=== PATIENT | female | born 1930 | race Caucasian/White ===

== ENCOUNTER 2017-07-23 16:40 | Observation (INO) | payer OTHER ==
--- NOTE | 2017-07-23 17:18 | PDOC ---
History of Present Illness - General Chief Complaint: Syncope/Near Syncope Stated Complaint: SYNCOPE/NEAR SYNCOPE Time Seen by Provider: 07/23/17 16:47 History Source: EMS, Correction Records Exam Limitations: Dementia - History of Present Illness Initial Comments: This is an 87 YOF with h/o vascular dementia (on memantine), diabetes (on metformin), hyperthyroid and thyroidectomy (now on levothyroxine) who presents s /p syncope x2 as at her independent living facility. She herself is unable to provide any of her medical history 2/2 dementia. The HCP is here with her and states that the patient has generally been feeling well lately. The patient is sent specifically for admission to Dr. Ratliff with Dr. Rios consulting for cardiology. Past History - Past Medical History Allergies/Adverse Reactions: Allergies Allergy/AdvReac Type Severity Reaction Status Date / Time No Known Allergies Allergy Verified 07/23/17 17:00 Home Medications: Ambulatory Orders Acetaminophen [Mapap] 500 mg PO BID 07/23/17 Atorvastatin Ca [Lipitor] 10 mg PO HS 07/23/17 Bimatoprost [Lumigan] 1 drop OU HS 07/23/17 Brimonidine Tartrate/Timolol [Combigan Eye Drops] 1 drop OU BID 07/23/17 Calcium Carbonate [Tums] 400 mg PO DAILY 07/23/17 Carboxymethylcell/Glycerin/Pf [Optive Sensitive Eye Drops] 1 each OU BID Cholecalciferol (Vitamin D3) [Vitamin D3] 50,000 cap PO MONTHLY 07/23/17 Levothyroxine [Synthroid -] 88 mcg PO DAILY 07/23/17 Memantine HCl [Namenda Xr] 28 mg PO DAILY 07/23/17 Metformin HCl 500 mg PO DAILY 07/23/17 COPD: No Dementia: Yes Diabetes: Yes Hypercholesterolemia: Yes Thyroid Disease: Yes (hypothyroidism) - Suicide/Smoking/Psychosocial Hx Smoking History: Unknown if ever smoked Have you smoked in the past 12 months: No Information on smoking cessation initiated: No Hx Alcohol Use: No Drug/Substance Use Hx: No Substance Use Type: None Review of Systems - Review of Systems Able to Perform ROS?: No (dementia) *Physical Exam - Vital Signs Last Vital Signs Temp Pulse Resp BP Pulse Ox 98.1 F 72 18 134/72 92 L 07/25/17 09:25 07/25/17 09:25 07/25/17 09:25 07/25/17 09:25 07/25/17 06:22 - Physical Exam General Appearance: Yes: Nourished, Appropriately Dressed, Other (pleasantly demented elderly female in no distress, oriented only to self, date, city , and type of building). No: Apparent Distress HEENT: positive: EOMI, SYEDA, Normal Voice, Hearing Grossly Normal. negative: Scleral Icterus (R), Scleral Icterus (L), Nasal Congestion Neck: positive: Trachea midline, Supple. negative: Tender, Rigid Respiratory/Chest: positive: Lungs Clear, Normal Breath Sounds. negative: Respiratory Distress, Crackles, Rhonchi, Stridor, Wheezing Cardiovascular: positive: Regular Rhythm, Regular Rate, Irregularly Irregular (A -fib versus PVCs). negative: Murmur Gastrointestinal/Abdominal: positive: Normal Bowel Sounds, Soft. negative: Tender, Organomegaly, Pulsatile Mass, Guarding Musculoskeletal: positive: Normal Inspection. negative: Decreased Range of Motion, Vertebral Tenderness Extremity: positive: Normal Capillary Refill, Normal Inspection, Normal Range of Motion, Other (R calf 1+ pitting edema, left calf trace pitting edema). negative: Tender, Cyanosis Integumentary: positive: Normal Color, Dry, Warm. negative: Erythema, Rash, Bruising Neurologic: positive: manager process excellence II-XII NML intact, Alert, Normal Mood/Affect, Normal Response, Motor Strength 5/5, Finger to Nose (normal). negative: EOM Palsy, Facial Droop, Numbness, Sensory Deficit ED Treatment Course - LABORATORY CBC & Chemistry Diagram: 07/25/17 05:05 07/25/17 05:05 - ADDITIONAL ORDERS Additional order review: 07/24/17 07/24/17 07/23/17 06:20 06:09 19:08 RBC 4.45 MCV 92.7 MCHC 32.4 RDW 13.0 MPV 9.1 Neutrophils % 83.4 H Lymphocytes % 10.9 Monocytes % 5.4 Eosinophils % 0.1 Basophils % 0.2 POC Glucometer 133 [id number] 07/23/17 17:45 RBC 4.82 MCV 91.9 MCHC 33.2 RDW 13.3 MPV 9.1 Neutrophils % 84.6 H Lymphocytes % 10.1 Monocytes % 4.7 Eosinophils % 0.2 Basophils % 0.4 POC Glucometer - RADIOLOGY Radiology Studies Ordered: Category Date Time Status HEAD CT WITHOUT CONTRAST [CT] Stat CT Scan 07/23/17 18:44 Completed CHEST PA & LAT [RAD] Stat Radiology 07/23/17 17:31 Completed Medical Decision Making - Medical Decision Making 87 YOF with h/o vascular dementia, NIDDM, and surgical hypothyroidism who had 2 episodes of syncope at SNF today. Sent specifically for admission to Dr. Ratliff with Dr. Rios consulting for cardiology. On exam VS wnl except requires supplemental O2 to maintain pulse ox >92. DDX IBNLT arrhythmia, critical , ACS, metabolic, toxic, infectious, etc. Ordered is CBCD, CMP, Mg, Phos, EKG, rhythm strip, CXR, UA cx. 07/23/17 18:50 While in the ED in a wheelchair just having returned from [facility], patient's HCP calls for assistance. The patient is unresponsive sitting in wheelchair, neck muscles lost tone and patient's head is back/looking upward. Myself and Dr. Vega assess the patient and Dr. Vega does not feel radial pulse at this time. With more assistants we are able to transfer her to the hospital bed and restart the monitor. She regains consciousness during transfer to the hospital bed. Estimated time unconscious about one minute. The patient is subsequently sleeping but arousable and does answer questions. She states she is very tired, no pain, no SOB or palpitations. *DC/Admit/Observation/Transfer Diagnosis at time of Disposition: Syncope Qualifiers: Syncope type: unspecified Qualified Code(s): R55 - Syncope and collapse - Discharge Dispostion Condition at time of disposition: Guarded Admit: Yes - Referrals - Patient Instructions - Post Discharge Activity
[2017-07-23 18:39] LABS: BASO % 0.4 % (0-2.0); EOS % 0.2 % (0-4.5); MCH 30.5 pg (25.7-33.7); MCHC 33.2 g/dl (32.0-36.0); MEAN CELL VOLUME 91.9 fl (80-96); MEAN PLT VOLUME 9.1 fl (7.5-11.1); MONO # 0.5 #; NEUT # 8.2 #; NEUT % 84.6 % (42.8-82.8); PLATELET COUNT 201 K/MM3 (134-434); RDW 13.3 % (11.6-15.6); WHITE BLOOD COUNT 9.7 K/mm3 (4.0-10.0)
--- NOTE | 2017-07-23 18:56 | PDOC ---
Attending Attestation - Resident Resident Name: HernandezMonique - ED Attending Attestation I have performed the following: I have examined & evaluated the patient, The case was reviewed & discussed with the resident, I agree w/resident's findings & plan, Exceptions are as noted - HPI HPI: 07/23/17 18:52 87-year-old female sent for admission to Dr. Ratliff in the setting of episodes of witnessed syncope. No trauma/pain, no h/o pacemaker evaluation, denies any chest pain/palpitations. - Physicial Exam PE: 07/23/17 18:54 afebrile alert, baseline dementia, atraumatic regular with a single pause noted during my auscultation ctab neuro nonfocal - Medical Decision Making 07/23/17 18:55 Patient seen and evaluated with the resident. I agree with the overall evaluation, assessment, and management with the following summary of visit: 87-year-old female with witnessed syncope, sent for admission. Labs, cardiac monitoring EKG with pause, question sinus pause v. second-degree block. We'll check a rhythm strip Admission to telemetry with cardiology following, Dr. Rios as per Dr. Ratliff
[2017-07-23 19:09] LABS: ALBUMIN 3.8 g/dl (3.4-5.0); ANION GAP 6 (8-16); CALCIUM 9.4 mg/dL (8.5-10.1); CO2 29 mmol/L (21-32); CREATININE 0.9 mg/dL (0.55-1.02); GLUCOSE,RANDOM 154 mg/dL (74-106); MAGNESIUM 2.2 mg/dL (1.8-2.4); SGOT/AST 12 U/L (15-37); SGPT/ALT 23 U/L (12-78)
[2017-07-23 19:16] LABS: ALK PHOS 101 U/L (45-117); BILIRUBIN,TOTAL 0.5 mg/dL (0.2-1.0); CPK 44 IU/L (26-192); TOT PROT 6.9 g/dl (6.4-8.2); TROPONIN I < 0.02 ng/ml (0.00-0.05)
[2017-07-23 19:52] LABS: URINE APPEARANCE CLOUDY; URINE BILIRUBIN NEGATIVE (NEGATIVE); URINE BLOOD NEGATIVE (NEGATIVE); URINE COLOR YELLOW; URINE GLUCOSE (UA) NEGATIVE (NEGATIVE); URINE KETONE NEGATIVE (NEGATIVE); URINE LEUK ESTERASE NEGATIVE (NEGATIVE); URINE NITRITE NEGATIVE (NEGATIVE); URINE PROTEIN NEGATIVE (NEGATIVE); URINE UROBILINOGEN NEGATIVE mg/dL (0.2-1.0)
[2017-07-23 23:51] LABS: URINE LEUK ESTERASE Negative (NEGATIVE)
[2017-07-24 01:06] VITALS: BMI 28.1
--- NOTE | 2017-07-24 02:06 | HP ---
Admitting History and Physical - Admission History of Present Illness: Pt is a 87 y/o female w/ PMH significant for vascular dementia, diabetes and hyperthyroid. Pt lives in a ?independently assisted living facility and was sent to the ER bc of 2 episodes of "passing out". Pt is unable to give any history of her syncope and states that she is feelilng fine and nothing happened. In the ER pt had ct scan head wc did not show any acute pathology. History Source: Patient, Medical Record - Past Medical History COMMUNITY NURSE: Yes: Dementia Endocrine: Yes: Diabetes Mellitus, Hyperthyroidism - Past Surgical History Additional Past Surgical History: Thyroidectomy - Advance Directives Advance Directives: Yes: Living Will, Health Care Proxy - Smoking History Smoking history: Unknown if ever smoked Have you smoked in the past 12 months: No - Alcohol/Substance Use Hx Alcohol Use: No Home Medications - Allergies Allergies/Adverse Reactions: Allergies Allergy/AdvReac Type Severity Reaction Status Date / Time No Known Allergies Allergy Verified 07/23/17 17:00 - Home Medications Home Medications: Ambulatory Orders Acetaminophen [Mapap] 500 mg PO BID 07/23/17 Atorvastatin Ca [Lipitor] 10 mg PO HS 07/23/17 Bimatoprost [Lumigan] 1 drop OU HS 07/23/17 Brimonidine Tartrate/Timolol [Combigan Eye Drops] 1 drop OU BID 07/23/17 Calcium Carbonate [Tums] 400 mg PO DAILY 07/23/17 Carboxymethylcell/Glycerin/Pf [Optive Sensitive Eye Drops] 1 each OU BID Cholecalciferol (Vitamin D3) [Vitamin D3] 50,000 cap PO MONTHLY 07/23/17 Levothyroxine [Synthroid -] 88 mcg PO DAILY 07/23/17 Memantine HCl [Namenda Xr] 28 mg PO DAILY 07/23/17 Metformin HCl 500 mg PO DAILY 07/23/17 Family Disease History - Family Disease History Family History: Unable to Obtain Review of Systems - Review of Systems Constitutional: reports: No Symptoms Eyes: reports: No Symptoms HENT: reports: No Symptoms Neck: reports: No Symptoms Cardiovascular: reports: No Symptoms Respiratory: reports: No Symptoms Gastrointestinal: reports: No Symptoms Physical Examination Vital Signs: Vital Signs Temperature 98.6 F 07/23/17 23:45 Pulse Rate 83 07/23/17 23:45 Respiratory Rate 18 07/23/17 23:45 Blood Pressure 113/55 07/23/17 23:45 O2 Sat by Pulse Oximetry (%) 92 L 07/23/17 23:45 Constitutional: Yes: No Distress Eyes: Yes: WNL HENT: Yes: WNL Neck: Yes: WNL, Supple Cardiovascular: Yes: WNL, Regular Rate and Rhythm Respiratory: Yes: WNL, Regular, CTA Bilaterally Gastrointestinal: Yes: WNL, Normal Bowel Sounds, Soft Musculoskeletal: Yes: WNL Extremities: Yes: WNL Edema: No Neurological: Yes: WNL, Alert, Other (Orientated to person but not place or time ) ...Motor Strength: WNL Labs: CBC, BMP 07/23/17 17:45 07/23/17 17:45 Problem List - Problems (1) Syncope Assessment/Plan: Admitted to tele No arrhythmia's on tele Neuro/cardio consults Carotid doppler did not show any significant stenosis Code(s): R55 - SYNCOPE AND COLLAPSE Qualifiers: Syncope type: unspecified Qualified Code(s): R55 - Syncope and collapse (2) Leukocytosis Assessment/Plan: Slight elevation in wbc ?Dehydrataion Will give gentle IV hydration and repeat in am Urine culture pending Code(s): D72.829 - ELEVATED WHITE BLOOD CELL COUNT, UNSPECIFIED (3) Hyperthyroidism Assessment/Plan: S/P thyroidectomy Pt on levothyroxine TSH is w/in normal limits Code(s): E05.90 - THYROTOXICOSIS, UNSP WITHOUT THYROTOXIC CRISIS OR STORM (4) HLD (hyperlipidemia) Assessment/Plan: Cont lipitor Code(s): E78.5 - HYPERLIPIDEMIA, UNSPECIFIED (5) Dementia Code(s): F03.90 - UNSPECIFIED DEMENTIA WITHOUT BEHAVIORAL DISTURBANCE
[2017-07-24 03:33] LABS: CPK 26 IU/L (26-192); TROPONIN I < 0.02 ng/ml (0.00-0.05)
[2017-07-24] MEDS: LEVOTHYROXINE NA 88 MCG TABLET (FP) PO SCH (06:11)
[2017-07-24] MEDS: metFORMIN HCL 500 MG TABLET (FP) PO SCH (06:11)
[2017-07-24 06:37] LABS: BASO % 0.2 % (0-2.0); EOS % 0.1 % (0-4.5); LYMPH # 1.3; MCH 30.1 pg (25.7-33.7); MCHC 32.4 g/dl (32.0-36.0); MEAN CELL VOLUME 92.7 fl (80-96); MEAN PLT VOLUME 9.1 fl (7.5-11.1); MONO # 0.6 #; NEUT # 10.1 #; NEUT % 83.4 % (42.8-82.8); PLATELET COUNT 200 K/MM3 (134-434); WHITE BLOOD COUNT 12.1 K/mm3 (4.0-10.0)
[2017-07-24 08:31] LABS: ALBUMIN 3.4 g/dl (3.4-5.0); ANION GAP 13 (8-16); BILIRUBIN,TOTAL 0.5 mg/dL (0.2-1.0); CALCIUM 9.8 mg/dL (8.5-10.1); CO2 25 mmol/L (21-32); GLUCOSE,RANDOM 148 mg/dL (74-106); SGOT/AST 14 U/L (15-37); SGPT/ALT 19 U/L (12-78); TOT PROT 6.3 g/dl (6.4-8.2)
[2017-07-24 08:32] LABS: ALK PHOS 85 U/L (45-117)
[2017-07-24 08:47] LABS: THYROID STIMULATING HORMONE 0.56 uIU/ml (0.358-3.74)
[2017-07-24] MEDS: HEPARIN NA (PORCINE) 5,000 UNITS/ML 1ML VIAL SQ SCH ×2 (09:05→21:07)
--- NOTE | 2017-07-24 09:47 | EKG ---
Test Reason : Blood Pressure : / mmHG Vent. Rate : 080 BPM Atrial Rate : 080 BPM P-R Int : 204 ms QRS Dur : 074 ms QT Int : 402 ms P-R-T Axes : 028 -51 043 degrees QTc Int : 463 ms SINUS RHYTHM WITH MARKED SINUS ARRHYTHMIA LEFT ANTERIOR FASCICULAR BLOCK ABNORMAL ECG NO PREVIOUS ECGS AVAILABLE Confirmed by ARMINDA DORSEY MD ([id number]) on 07/24/2017 9:47:29 AM Referred By: Confirmed By:ARMINDA DORSEY MD
[2017-07-24] MEDS ORDERED: PATIENT'S OWN MEDICATION (NON-FORMULARY) (Brimonidine Tartrate/Timolol [Combigan 0.2%-0.5% OU SCH (10:00)
[2017-07-24] MEDS ORDERED: CALCIUM CARBONATE 400 MG PO SCH (10:00)
[2017-07-24] MEDS ORDERED: PATIENT'S OWN MEDICATION (NON-FORMULARY) (Memantine Hcl [Namenda Xr] 28 MG) PO SCH (10:00)
[2017-07-24] MEDS: BRIMONIDINE TARTRATE 0.2% OPHTHALMIC 5 ML BOTTLE OU SCH ×2 (10:32→21:06)
[2017-07-24] MEDS: TIMOLOL 0.5% OPHTHALMIC SOL 5 ML BOTTLE OU SCH ×2 (10:34→21:07)
--- NOTE | 2017-07-24 12:36 | CON.NEURO ---
Consult - Alcohol/Substance Use Hx Alcohol Use: No - Smoking History Smoking history: Unknown if ever smoked Have you smoked in the past 12 months: No Home Medications - Allergies Allergies/Adverse Reactions: Allergies Allergy/AdvReac Type Severity Reaction Status Date / Time No Known Allergies Allergy Verified 07/23/17 17:00 - Home Medications Home Medications: Ambulatory Orders Acetaminophen [Mapap] 500 mg PO BID 07/23/17 Atorvastatin Ca [Lipitor] 10 mg PO HS 07/23/17 Bimatoprost [Lumigan] 1 drop OU HS 07/23/17 Brimonidine Tartrate/Timolol [Combigan Eye Drops] 1 drop OU BID 07/23/17 Calcium Carbonate [Tums] 400 mg PO DAILY 07/23/17 Carboxymethylcell/Glycerin/Pf [Optive Sensitive Eye Drops] 1 each OU BID Cholecalciferol (Vitamin D3) [Vitamin D3] 50,000 cap PO MONTHLY 07/23/17 Levothyroxine [Synthroid -] 88 mcg PO DAILY 07/23/17 Memantine HCl [Namenda Xr] 28 mg PO DAILY 07/23/17 Metformin HCl 500 mg PO DAILY 07/23/17 Physical Exam-Neuro Vital Signs: Vital Signs Temperature 97 F L 07/24/17 10:00 Pulse Rate 84 07/24/17 10:00 Respiratory Rate 18 07/24/17 10:00 Blood Pressure 116/60 07/24/17 10:00 O2 Sat by Pulse Oximetry (%) 95 07/24/17 10:00 Labs: CBC, BMP 07/24/17 06:20 07/24/17 06:20 Assessment/Plan cc episode of passing otu HPI 87 year old female history of dementia, DM, Hypothyroidism, She presented with two episode of passing out. She lives in Independent living facility. There is no history of seizures, no tongue bite or incontinence. No prolong post ictal confusion. Patient had ct head and carotid ultrasound was normal Past Medical History as above NKDA SH,FH,ROS reviewed in chart Acetaminophen [Mapap] 500 mg PO BID 07/23/17 Atorvastatin Ca [Lipitor] 10 mg PO HS 07/23/17 Bimatoprost [Lumigan] 1 drop OU HS 07/23/17 Brimonidine Tartrate/Timolol [Combigan Eye Drops] 1 drop OU BID 07/23/17 Calcium Carbonate [Tums] 400 mg PO DAILY 07/23/17 Carboxymethylcell/Glycerin/Pf [Optive Sensitive Eye Drops] 1 each OU BID Cholecalciferol (Vitamin D3) [Vitamin D3] 50,000 cap PO MONTHLY 07/23/17 Levothyroxine [Synthroid -] 88 mcg PO DAILY 07/23/17 Memantine HCl [Namenda Xr] 28 mg PO DAILY 07/23/17 Metformin HCl 500 mg PO DAILY 07/23/17 Neurological Examination Alert oriented x 1, she is abdifatah to tell her date of , able to follow command abdifatah to recognize her friends CN all intact, EOMI, PUPILS REACTIVE, face symmetrical Sensation is normal ct head and carotid ultrasoudn normal Assessment- Two episode fo syncope, unlikely to be seizures or stroke/tia Plan- no further recommendation from Neurological Point of view - Can follow up as outpatient. Thanking you so much Moises Rivera MD
--- NOTE | 2017-07-24 13:20 | CON.CARD ---
Cardiology Consult (text) - Consultation Consultation Note: cc: syncope hpi: 87 f hx dementia, hld, hypothyroid, sent from [facility] after possible syncope. Pt does not recall any events and family is not aware of what happened. They just were told by senior care that she fainted and she was sent to ER. Pt has no sxs presently. No cp, sob, palps, dizzy, pnd, orthopnea, le edema. No hx hrt dz. pmh: per hpi psh: thyroidectomy social: no tob fam: no premature cad, scd ros: per hpi; no nvd, cough, bliss, vision changes, gib, hematuria, dysuria, fever , muscle pain meds: Current Medications Generic Name Dose Route Start Last Admin Trade Name Freq PRN Reason Stop Dose Admin Atorvastatin Calcium 10 mg 07/24/17 22:00 Lipitor - PO HS YOSEPH Brimonidine Tartrate 1 drop 07/24/17 10:00 07/24/17 10:32 Alphagan 0.2% - OU 1 drop BID YOSEPH Administration Heparin Sodium (Porcine) 5,000 unit 07/24/17 10:00 07/24/17 09:05 Heparin - SQ 5,000 unit BID YOSEPH Administration Latanoprost 1 drop 07/24/17 22:00 Xalatan 0.005% Eye Drops - OU HS YOSPEH Levothyroxine Sodium 88 mcg 07/24/17 07:00 07/24/17 06:11 Synthroid - PO 88 mcg DAILY@0700 YOSEPH Administration Metformin HCl 500 mg 07/24/17 07:00 07/24/17 06:11 Glucophage - PO 500 mg DAILY@0700 YOSEPH Administration Non-Formulary Medication 400 mg 07/24/17 10:00 Calcium Carbonate [Tums] PO DAILY YOSEPH Non-Formulary Medication 28 mg 07/24/17 10:00 Memantine Hcl [Namenda Xr] PO DAILY YOSEPH Timolol Maleate 1 drop 07/24/17 10:00 07/24/17 10:34 Timoptic 0.5% OU 1 drop BID YOSEPH Administration Home Medications Medication Instructions Recorded Acetaminophen [Mapap] 500 mg PO BID 07/23/17 Atorvastatin Ca [Lipitor] 10 mg PO HS 07/23/17 Bimatoprost [Lumigan] 1 drop OU HS 07/23/17 Brimonidine Tartrate/Timolol 1 drop OU BID 07/23/17 [Combigan Eye Drops] Calcium Carbonate [Tums] 400 mg PO DAILY 07/23/17 Carboxymethylcell/Glycerin/Pf 1 each OU BID 07/23/17 [Optive Sensitive Eye Drops] Cholecalciferol (Vitamin D3) 50,000 cap PO MONTHLY 07/23/17 [Vitamin D3] Levothyroxine [Synthroid -] 88 mcg PO DAILY 07/23/17 Memantine HCl [Namenda Xr] 28 mg PO DAILY 07/23/17 Metformin HCl 500 mg PO DAILY 07/23/17 pe: Vital Signs Period Temp Pulse Resp BP Sys/Franco Pulse Ox Last 24 Hr 97 F-98.6 F 79-96 18-20 94-132/55-81 92-95 nad no jvd rrr s1s2 no mrg cta bl nl eff awake alert appropriate no jaundice diaphoresis pos dp pt no carotid bruits abd nt nd pos bs no le e/c/c Laboratory Last Values WBC 12.1 K/mm3 (4.0-10.0) H 07/24/17 06:20 RBC 4.45 M/mm3 (3.60-5.2) 07/24/17 06:20 Hgb 13.4 GM/dL (10.7-15.3) 07/24/17 06:20 Hct 41.3 % (32.4-45.2) 07/24/17 06:20 MCV 92.7 fl (80-96) 07/24/17 06:20 MCH 30.1 pg (25.7-33.7) 07/24/17 06:20 MCHC 32.4 g/dl (32.0-36.0) 07/24/17 06:20 RDW 13.0 % (11.6-15.6) 07/24/17 06:20 Plt Count 200 K/MM3 (134-434) 07/24/17 06:20 MPV 9.1 fl (7.5-11.1) 07/24/17 06:20 Neutrophils % 83.4 % (42.8-82.8) H 07/24/17 06:20 Lymphocytes % 10.9 % (8-40) 07/24/17 06:20 Monocytes % 5.4 % (3.8-10.2) 07/24/17 06:20 Eosinophils % 0.1 % (0-4.5) 07/24/17 06:20 Basophils % 0.2 % (0-2.0) 07/24/17 06:20 Sodium 142 mmol/L (136-145) 07/24/17 06:20 Potassium 4.2 mmol/L (3.5-5.1) 07/24/17 06:20 Chloride 104 mmol/L (98-107) 07/24/17 06:20 Carbon Dioxide 25 mmol/L (21-32) 07/24/17 06:20 Anion Gap 13 (8-16) 07/24/17 06:20 BUN 20 mg/dL (7-18) H 07/24/17 06:20 Creatinine 1.0 mg/dL (0.55-1.02) 07/24/17 06:20 Creat Clearance w eGFR 52.45 (>60) 07/24/17 06:20 POC Glucometer 133 UNITS (80-120) 07/24/17 06:09 Random Glucose 148 mg/dL (74-106) H 07/24/17 06:20 Calcium 9.8 mg/dL (8.5-10.1) 07/24/17 06:20 Phosphorus 4.0 mg/dL (2.5-4.9) 07/23/17 17:45 Magnesium 2.2 mg/dL (1.8-2.4) 07/23/17 17:45 Total Bilirubin 0.5 mg/dL (0.2-1.0) 07/24/17 06:20 AST 14 U/L (15-37) L 07/24/17 06:20 ALT 19 U/L (12-78) 07/24/17 06:20 Alkaline Phosphatase 85 U/L (45-117) 07/24/17 06:20 Creatine Kinase 26 IU/L (26-192) 07/24/17 02:35 Troponin I < 0.02 ng/ml (0.00-0.05) 07/24/17 02:35 B-Natriuretic Peptide 160.03 pg/ml (5-450) 07/23/17 17:45 Total Protein 6.3 g/dl (6.4-8.2) L 07/24/17 06:20 Albumin 3.4 g/dl (3.4-5.0) 07/24/17 06:20 TSH 0.56 uIU/ml (0.358-3.74) D 07/24/17 06:20 Urine Color Yellow 07/23/17 18:00 Urine Appearance Cloudy 07/23/17 18:00 Urine pH 7.0 (5.0-8.0) 07/23/17 18:00 Ur Specific [place] 1.012 (1.001-1.035) 07/23/17 18:00 Urine Protein Negative (NEGATIVE) 07/23/17 18:00 Urine Glucose (UA) Negative (NEGATIVE) 07/23/17 18:00 Urine Ketones Negative (NEGATIVE) 07/23/17 18:00 Urine Blood Negative (NEGATIVE) 07/23/17 18:00 Urine Nitrite Negative (NEGATIVE) 07/23/17 18:00 Urine Bilirubin Negative (NEGATIVE) 07/23/17 18:00 Urine Urobilinogen Negative mg/dL (0.2-1.0) 07/23/17 18:00 Ur Leukocyte Esterase Negative (NEGATIVE) 07/23/17 18:00 ecg 07/23/17: sr, nl intervals, no ischemic changes tele: sr, occ pvcs cxr: clear lungs a/p: 87 f hx dementia, hld, hypothyroid, sent from [facility] after possible syncope. possible syncope: -no details available -no signs acs, chf -tele benign so far, cont for now -check echo, carotid us, orthostatics hld: -cont statin hypothyroid: -cont synthroid, tsh wnl
[2017-07-24] MEDS ORDERED: PT OWN MED DRAWER 7, Y5N ONE ×2 (20:59→21:19)
[2017-07-24] MEDS ORDERED: LATANOPROST 0.005% OPHTH SOLN 2.5ML BOTTLE OU SCH (22:00)
[2017-07-24] MEDS ORDERED: ATORVASTATIN CA 10 MG TABLET (FP) PO SCH (22:00)
[2017-07-24] MEDS ORDERED: DEXTROSE 5%-0.45% SALINE 1,000 ML IV SCH (23:15)
[2017-07-25] MEDS: LEVOTHYROXINE NA 88 MCG TABLET (FP) PO SCH (06:24)
[2017-07-25] MEDS: metFORMIN HCL 500 MG TABLET (FP) PO SCH (06:24)
[2017-07-25 07:42] LABS: BASO % 0.6 % (0-2.0); EOS # 0.1 #; EOS % 1.4 % (0-4.5); LYMPH # 1.8; MCHC 32.6 g/dl (32.0-36.0); MEAN PLT VOLUME 9.3 fl (7.5-11.1); MONO # 0.5 #; NEUT # 3.9 #; NEUT % 61.5 % (42.8-82.8); PLATELET COUNT 196 K/MM3 (134-434); RDW 13.1 % (11.6-15.6); WHITE BLOOD COUNT 6.4 K/mm3 (4.0-10.0)
[2017-07-25 07:49] LABS: ALBUMIN 3.6 g/dl (3.4-5.0); ANION GAP 9 (8-16); CALCIUM 9.3 mg/dL (8.5-10.1); CO2 25 mmol/L (21-32); GLUCOSE,RANDOM 120 mg/dL (74-106); SGOT/AST 14 U/L (15-37); SGPT/ALT 21 U/L (12-78)
[2017-07-25 07:52] LABS: ALK PHOS 90 U/L (45-117); BILIRUBIN,TOTAL 0.9 mg/dL (0.2-1.0); CREATININE 0.8 mg/dL (0.55-1.02); TOT PROT 6.6 g/dl (6.4-8.2)
[2017-07-25] MEDS ORDERED: PT OWN MED DRAWER 7, Y5N ONE ×2 (08:59→10:40)
[2017-07-25] MEDS: BRIMONIDINE TARTRATE 0.2% OPHTHALMIC 5 ML BOTTLE OU SCH (09:15)
[2017-07-25] MEDS: HEPARIN NA (PORCINE) 5,000 UNITS/ML 1ML VIAL SQ SCH (09:15)
[2017-07-25] MEDS: TIMOLOL 0.5% OPHTHALMIC SOL 5 ML BOTTLE OU SCH (09:16)
[2017-07-25 09:26] VITALS: BP 134/72; PULSE 72; TEMP 98.1
--- NOTE | 2017-07-25 11:20 | EKG ---
Test Reason : Blood Pressure : / mmHG Vent. Rate : 080 BPM Atrial Rate : 080 BPM P-R Int : 218 ms QRS Dur : 076 ms QT Int : 410 ms P-R-T Axes : 025 -44 031 degrees QTc Int : 472 ms SINUS RHYTHM WITH MARKED SINUS ARRHYTHMIA WITH 1ST DEGREE A-V BLOCK LEFT AXIS DEVIATION ABNORMAL ECG WHEN COMPARED WITH ECG OF 23-JUL-2017 17:16, NO SIGNIFICANT CHANGE WAS FOUND Confirmed by ROSALINDA TORRES, JULIO CESAR ([id number]) on 07/25/2017 11:19:44 AM Referred By: Confirmed By:JULIO CESAR TELLEZ MD
[2017-07-25 16:04] LABS: CPK 72 IU/L (26-192); TROPONIN I < 0.02 ng/ml (0.00-0.05)
== END 2017-07-25 15:20 | disposition home or self-care (01) ==
LOC: JER 16:40 → INTOOBSV 19:28 → JERBED 19:28 → UNDOADMOB 19:28 → JERBED 07-24 00:12 → J4W 07-24 00:12 → JERBED 07-24 17:00
PROVIDERS: ADMIT Internal Medicine; ATTEND Internal Medicine
PROC: 3E013GC Introduction of Other Therapeutic Substance into Subcutaneous Tissue, Percutaneous Approach (ICD-10-PCS; principal; 2017-07-24)
DX: R55 Syncope and collapse (principal); F01.50 Vascular dementia, unspecified severity, without behavioral disturbance, psychotic disturbance, mood disturbance, and anxiety; E11.9 Type 2 diabetes mellitus without complications; E89.0 Postprocedural hypothyroidism; Z79.84 Long term (current) use of oral hypoglycemic drugs; E78.00 Pure hypercholesterolemia, unspecified; D72.829 Elevated white blood cell count, unspecified
CPT/HCPCS: 36415; 70450-TC; 71020-TC; 80053; 81003; 82550; 83735; 83880; 84100; 84443; 84484; 85025; 87086; 93005; 93010; 93306-TC; 93880-TC; 99285-25; G0378; J1644

== ENCOUNTER 2019-08-14 10:11 | Inpatient (IN) | payer OTHER ==
--- NOTE | 2019-08-14 11:11 | PDOC ---
History of Present Illness - General Chief Complaint: Back Pain Stated Complaint: BACK PAIN Time Seen by Provider: 08/14/19 10:56 History Source: Patient Exam Limitations: No Limitations - History of Present Illness Initial Comments: 08/14/19 11:06 89 yo F with a hx of hypothyroidism, vascular dementia, and DM presents to the emergency department from her [facility] ([facility]) with back pain per the nursing staff. Per the nursing staff, she ambulates on her own volition without assistance has been complaining for the past 7 days of lower back pain of unknown severity and etiology. No falls were witnessed by the staff. Per the patient, she has no pain and feels well. Denies the following: fever, chills, headache, visual disturbance, chest pain, SOB, nausea, vomiting, abdominal pain , dysuria, hematuria, and leg pain and swelling. Allergies: NKDA Past History - Past Medical History Allergies/Adverse Reactions: Allergies Allergy/AdvReac Type Severity Reaction Status Date / Time No Known Allergies Allergy Verified 08/14/19 10:29 Home Medications: Ambulatory Orders Acetaminophen [Mapap] 500 mg PO BID 07/23/17 Atorvastatin Ca [Lipitor] 10 mg PO HS 07/23/17 Brimonidine Tartrate/Timolol [Combigan 0.2%-0.5% Eye Drops] 1 drop OU BID Calcium Carbonate [Tums] 1,000 mg PO DAILY 07/23/17 Cholecalciferol (Vitamin D3) [Vitamin D3] 50,000 cap PO MONTHLY 07/23/17 Levothyroxine [Synthroid -] 88 mcg PO DAILY 07/23/17 Memantine HCl [Namenda Xr] 28 mg PO DAILY 07/23/17 metFORMIN HCL [Metformin HCl] 500 mg PO BID 07/23/17 Latanoprost 0.005% Eye Drops [Xalatan 0.005% Eye Drops -] 1 drop OU HS 08/14/19 Lidocaine [Aspercreme Lidocaine] 1 each TP BID 08/14/19 Acetaminophen [Tylenol .Extra-Strength -] 500 mg PO Q12H tablet 08/15/19 Atorvastatin Ca [Lipitor] 10 mg PO HS tablet 08/15/19 Brimonidine Tartrate [Alphagan 0.15% -] 1 drop OU BID drops 08/15/19 Latanoprost 0.005% Eye Drops [Xalatan 0.005% Eye Drops -] 1 drop OU HS drops Levothyroxine [Synthroid -] 88 mcg PO DAILY@0700 tablet 08/15/19 Lidocaine 5% Patch [Lidoderm -] 1 patch TP DAILY@1900 patch 08/15/19 Lidocaine Patch Removal [Lidoderm Patch Removal] 1 each MC DAILY@0700 each Memantine HCl [Namenda -] 10 mg PO DAILY tablet 08/15/19 metFORMIN HCL [Glucophage -] 500 mg PO BID@0700,1630 tablet 08/15/19 COPD: No Dementia: Yes Diabetes: Yes Hypercholesterolemia: Yes Thyroid Disease: Yes (hypothyroidism) - Immunization History Immunization Up to Date: Yes - Psycho Social/Smoking Cessation Hx Smoking History: Unknown if ever smoked Have you smoked in the past 12 months: No Information on smoking cessation initiated: No Hx Alcohol Use: No Drug/Substance Use Hx: No Substance Use Type: None Review of Systems - Review of Systems Able to Perform ROS?: No (dementia) *Physical Exam - Vital Signs Last Vital Signs Temp Pulse Resp BP Pulse Ox 97.2 F L 68 18 158/84 94 L 08/14/19 10:21 08/14/19 10:21 08/14/19 10:21 08/14/19 10:21 08/14/19 10:21 - Physical Exam General Appearance: Yes: Nourished, Appropriately Dressed. No: Apparent Distress, Intoxicated HEENT: positive: EOMI, SYEDA, Normal Voice, Symmetrical, Pharynx Normal, Hearing Grossly Normal. negative: Pale Conjunctivae, Scleral Icterus (R), Scleral Icterus (L), Muffled/Hoarse voice, Pharyngeal Erythema, Tonsillar Exudate, Tonsillar Erythema, Nasal Congestion, Rhinorrhea, Excessive drooling Neck: positive: Trachea midline, Supple. negative: Tender, Lymphadenopathy (R) , Lymphadenopathy (L), Tender lateral, Tender midline Respiratory/Chest: positive: Lungs Clear, Normal Breath Sounds. negative: Chest Tender, Respiratory Distress, Accessory Muscle Use Cardiovascular: positive: Regular Rhythm, Regular Rate, S1, S2. negative: Systolic Murmur Gastrointestinal/Abdominal: positive: Normal Bowel Sounds, Flat, Soft. negative : Tender, Distended, Guarding, Rebound Lymphatic: negative: Adenopathy Musculoskeletal: positive: Normal Inspection, Other (paraspinal tenderness to palpation bilaterally noted from L1-L5.) Extremity: positive: Normal Capillary Refill, Normal Inspection, Normal Range of Motion. negative: Tender Integumentary: positive: Normal Color, Dry, Warm. negative: Swelling, Ecchymosis Neurologic: positive: Alert, Normal Mood/Affect. negative: Fully Oriented ( oriented to self only) ED Treatment Course - LABORATORY CBC & Chemistry Diagram: 08/14/19 11:40 08/14/19 11:40 Medical Decision Making - Medical Decision Making 89 yo F with a hx of hypothyroidism, vascular dementia, and DM presents to the emergency department from her [facility] ([facility]) with back pain per the nursing staff. Initial vitals: Initial Vital Signs Temp Pulse Resp BP Pulse Ox 97.2 F L 68 18 158/84 94 L 08/14/19 10:21 08/14/19 10:21 08/14/19 10:21 08/14/19 10:21 08/14/19 10:21 Work up: Patient presents to the emergency department with fall that was unwitnessed with unknown etiology with associative new back pain with inability to ambulate with baseline being able to ambulate. ddx includes compression fracture vs sublaxation vs muscle spasm vs AAA vs dissection Laboratory Tests 08/14/19 08/14/19 08/14/19 11:15 11:40 11:40 WBC 7.8 RBC 4.53 Hgb 13.7 Hct 41.2 MCV 91.0 MCH 30.3 MCHC 33.3 RDW 13.6 Plt Count 224 MPV 8.6 Absolute Neuts (auto) 6.0 Neutrophils % 77.1 D Lymphocytes % 14.0 D Monocytes % 6.7 Eosinophils % 1.7 Basophils % 0.5 Nucleated RBC % 0 Sodium 138 Potassium 4.2 Chloride 104 Carbon Dioxide 30 Anion Gap 5 L BUN 17.2 Creatinine 0.8 Est GFR (CKD-EPI)AfAm 75.76 Est GFR (CKD-EPI)NonAf 65.36 POC Glucometer 176 Random Glucose 157 H Calcium 9.2 Total Bilirubin 0.4 AST 14 L ALT 19 Alkaline Phosphatase 107 Creatine Kinase 34 Troponin I < 0.02 Total Protein 6.4 Albumin 3.4 CXR negative for acute process Cervical spine CT negative for acute process head ct negative for acute process CTAP is negative for dissection and AAA. Also noted was 6x5.7x3.7 cm irregular mass heterogenous in nature was noted. this information was relayed to the family member at bedside to the patient lumbar spine ct shows L1 compression fracture that is stated to be chronic in nature. however, speaking to the family members the patient has not had a history of compression fracture in L1. Patient to be admitted due to inability to walk which needs evaluation for SNF placement for rehabilitation. Discharge - Discharge Information Problems reviewed: Yes Clinical Impression/Diagnosis: Compression fracture of L1 lumbar vertebra Condition: Stable - Follow up/Referral - Patient Discharge Instructions - Post Discharge Activity
--- NOTE | 2019-08-14 11:18 | PDOC ---
Documentation entered by Cullen Hernandez SCRIBE, acting as scribe for Cindy Watson MD. Cindy Watson MD: This documentation has been prepared by the David muller Daniel, SCRIBE, under my direction and personally reviewed by me in its entirety. I confirm that the documentation accurately reflects all work, treatment, procedures, and medical decision making performed by me. Attending Attestation - Resident Resident Name: CarlyCameron - ED Attending Attestation I have performed the following: I have examined & evaluated the patient, The case was reviewed & discussed with the resident, I agree w/resident's findings & plan, Exceptions are as noted - HPI HPI: 08/14/19 11:18 89 yo F with a hx of hypothyroidism, vascular dementia, and DM [facility] department [facility] with [facility] pain per the nursing staff. At baseline, pt is ambulatory but for the last 7 days, she has required assistance to ambulate. No trauma or falls were witnessed by the staff. History is limited 2/2 dementia, pt denies all complaints currently. - Physicial Exam PE: 08/14/19 11:32 Agree with resident exam - Medical Decision Making 08/14/19 11:32 89yo F presents to the ED with atraumatic lower back pain Exam with paraspinal lumbar ttp DDx includes muscle spasm vs compression fracture vs disc herniation vs AAA Plan for labs, CTA with recons of lumbar spine and pelvis, pain control, reassess Dissection study negative, but pt with age indeterminate compression fracture Pt unable to ambulate, wll admit for further mgmt
[2019-08-14] MEDS ORDERED: ACETAMINOPHEN 1000 MG/100 ML VIAL (NON FORMULARY) IVPB ONE (11:34)
[2019-08-14] MEDS ORDERED: ACETAMINOPHEN INJECTION 100 ML IVPB ONE (11:43)
[2019-08-14 11:56] LABS: BASO % 0.5 % (0-2.0); EOS % 1.7 % (0-4.5); HEMATOCRIT 41.2 % (32.4-45.2); HEMOGLOBIN 13.7 GM/dL (10.7-15.3); MCH 30.3 pg (25.7-33.7); MCHC 33.3 g/dl (32.0-36.0); MEAN PLT VOLUME 8.6 fl (7.5-11.1); MONO % 6.7 % (3.8-10.2); NEUT % 77.1 % (42.8-82.8); PLATELET COUNT 224 K/MM3 (134-434); RBC 4.53 M/mm3 (3.60-5.2); RDW 13.6 % (11.6-15.6); WHITE BLOOD COUNT 7.8 K/mm3 (4.0-10.0)
[2019-08-14 12:25] LABS: ALBUMIN 3.4 g/dl (3.4-5.0); ALK PHOS 107 U/L (45-117); ANION GAP 5 MMOL/L (8-16); BILIRUBIN,TOTAL 0.4 mg/dL (0.2-1); BLOOD UREA NITROGEN 17.2 mg/dL (7-18); CALCIUM 9.2 mg/dL (8.5-10.1); CHLORIDE 104 mmol/L (98-107); CO2 30 mmol/L (21-32); CREATININE 0.8 mg/dL (0.55-1.3); GLUCOSE,RANDOM 157 mg/dL (74-106); POTASSIUM 4.2 mmol/L (3.5-5.1); SGOT/AST 14 U/L (15-37); SGPT/ALT 19 U/L (13-61); SODIUM 138 mmol/L (136-145); TOT PROT 6.4 g/dl (6.4-8.2)
--- NOTE | 2019-08-14 18:53 | HP ---
Admitting History and Physical - Admission Chief Complaint: Acute low back pain History of Present Illness: This 89 yr old w/f with hx of hypothyroidism, vascular dementia, and type 2 diabetes admitted via ER with acute low back pain, and probably an acute compression fracture of L1, and a small central disc herniation L5/S1. Incidental finding mass of the liver. 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 Cardiovascular: No: AFIB, Aneurysm, Aortic Insufficiency, Aortic Stenosis, CAD, CHF, Deep Vein Thrombosis, HTN, Hyperlipdemia, [place], Mitral Insufficiency, Mitral Stenosis, Murmur, Pulmonary Hypertension, Other Pulmonary: No: Asthma, Bronchitis, Cancer, COPD, O2 Dependent, Pneumonia, Previously Intubated, Pulmonary Embolus, Pulmonary Fibrosis, Sleep Apnea, Other Gastrointestinal: No: Ascites, Cancer, Constipation, Crohn's Disease, Diverticulitis, Diverticulosis, Esophageal Varices, Gastritis, GERD, GI Bleed, Hemorrhoids, Hiatal Hernia, Inflamatory Bowel Disease, Irritable Bowel Disease, Pancreatitis, Peptic Ulcer Disease, Ulcerative Colitis, Other Hepatobiliary: No: Cirrhosis, Cholelithiasis, Cholecystitis, Choledocholithiasis , Hepatitis A, Hepatitis B, Hepatitis C, Other Renal/: No: Renal Failure, Renal Inusuff, BPH, Cancer, Hematuria, Hemodialysis , Neurogenic Bladder, Renal Calculi, UTI, Other Heme/Onc: No: Anemia, B12 Deficiency, Bleeding Disorder, Cancer, Current Chemotherapy, Current Radiation Therapy, Hemochromatosis, Hypercoaguable State, Myeloproliferative Synd, Sickle Cell Disease, Sickle Cell Trait, Thrombocytopenia, Other Infectious Disease: No: AIDS, C-Diff, Herpes Zoster, HIV, MRSA, STD's, Tuberculosis, VREF, Other Musculoskeletal: Yes: Chronic low back pain, Osteoarthritis Rheumatology: No: Fibromyalgia, Gout, Lupus, Rheumatoid Arthritis, Sarcoidosis, Vasculitis, Other Endocrine: Yes: Diabetes Mellitus, Hyperthyroidism Dermatology: No: Basal Cell, Cellulitis, Eczema, Melanoma, Psoriasis, Squamous Cell, Other - Advance Directives Advance Directives: Yes: DNR - Smoking History Smoking history: Unknown if ever smoked Have you smoked in the past 12 months: No - Alcohol/Substance Use Hx Alcohol Use: No - Social History Usual Living Arrangement: Yes: Assisted Living Home Medications - Allergies Allergies/Adverse Reactions: Allergies Allergy/AdvReac Type Severity Reaction Status Date / Time No Known Allergies Allergy Verified 08/14/19 10:29 - Home Medications Home Medications: Ambulatory Orders Acetaminophen [Mapap] 500 mg PO BID 07/23/17 Atorvastatin Ca [Lipitor] 10 mg PO HS 07/23/17 Brimonidine Tartrate/Timolol [Combigan 0.2%-0.5% Eye Drops] 1 drop OU BID Calcium Carbonate [Tums] 1,000 mg PO DAILY 07/23/17 Cholecalciferol (Vitamin D3) [Vitamin D3] 50,000 cap PO MONTHLY 07/23/17 Levothyroxine [Synthroid -] 88 mcg PO DAILY 07/23/17 Memantine HCl [Namenda Xr] 28 mg PO DAILY 07/23/17 metFORMIN HCL [Metformin HCl] 500 mg PO BID 07/23/17 Latanoprost 0.005% Eye Drops [Xalatan 0.005% Eye Drops -] 1 drop OU HS 08/14/19 Lidocaine [Aspercreme] 1 each TP BID 08/14/19 Review of Systems - Review of Systems Constitutional: reports: No Symptoms Eyes: reports: No Symptoms HENT: reports: No Symptoms Neck: reports: No Symptoms Cardiovascular: reports: No Symptoms Respiratory: reports: No Symptoms Gastrointestinal: reports: No Symptoms Genitourinary: reports: No Symptoms Breasts: reports: No Symptoms Reported Musculoskeletal: reports: Back Pain Integumentary: reports: No Symptoms Neurological: reports: No Symptoms Endocrine: reports: No Symptoms Hematology/Lymphatic: reports: No Symptoms Psychiatric: reports: No Symptoms Physical Examination Vital Signs: Vital Signs Temperature 97.7 F 08/14/19 18:40 Pulse Rate 68 08/14/19 18:40 Respiratory Rate 18 08/14/19 18:40 Blood Pressure 147/86 08/14/19 18:40 O2 Sat by Pulse Oximetry (%) 97 08/14/19 17:19 Constitutional: Yes: Well Nourished, Calm, Mild Distress Eyes: Yes: Conjunctiva Clear, EOM Intact HENT: Yes: Atraumatic, Normocephalic Neck: Yes: Supple, Trachea Midline Cardiovascular: Yes: Regular Rate and Rhythm Respiratory: Yes: Regular, CTA Bilaterally Gastrointestinal: Yes: Normal Bowel Sounds, Soft ...Rectal Exam: Yes: Deferred Renal/: Yes: WNL Breast(s): Yes: WNL Musculoskeletal: Yes: Back Pain, Other (Difficulty in walking) Edema: No Peripheral Pulses WNL: Yes Peripheral Pulses: Left Radial: 2+, Right Radial: 2+, Left Doralis Pedis: 2+, Right Dorsalis Pedis: 2+, Left Femoral: 2+, Right Femoral: 2+ Integumentary: Yes: WNL Neurological: Yes: Alert ...Motor Strength: WNL Psychiatric: Yes: Alert Labs: CBC, BMP 08/14/19 11:40 08/14/19 11:40 Imaging - Results Chest X-ray: Report Reviewed Cat Scan: Report Reviewed (Lab data reviewed) Problem List - Problems (1) Low back pain Code(s): M54.5 - LOW BACK PAIN (2) Compression fracture of L1 lumbar vertebra Code(s): S32.010A - WEDGE COMPRESSION FRACTURE OF FIRST LUMBAR VERTEBRA, INIT Assessment/Plan Assessment/plan: acute low back pain, acute compression fracture of L1; physical therapy, DVT prophylaxis, SCD'S, analgesics.
[2019-08-14] MEDS: ACETAMINOPHEN 500 MG TABLET (FP) PO SCH (20:08)
[2019-08-14] MEDS ORDERED: ATORVASTATIN CA 10 MG TABLET (FP) PO SCH (22:00)
[2019-08-14] MEDS ORDERED: LATANOPROST 0.005% OPHTH SOLN 2.5ML BOTTLE OU SCH (22:00)
[2019-08-15] MEDS ORDERED: PNEUMOC 13-VAL CONJ-DIP CRM/PF 0.5 ML DISP.SYRIN IM ONE (02:55)
[2019-08-15 02:56] VITALS: BMI 26.9
[2019-08-15] MEDS: ACETAMINOPHEN 500 MG TABLET (FP) PO SCH (06:39)
[2019-08-15] MEDS: metFORMIN HCL 500 MG TABLET (FP) PO SCH ×2 (06:40→16:45)
[2019-08-15] MEDS ORDERED: LEVOTHYROXINE NA 88 MCG TABLET (FP) PO SCH (07:00)
[2019-08-15] MEDS ORDERED: LIDOCAINE PATCH REMOVAL MC SCH (07:00)
[2019-08-15] MEDS ORDERED: MEMANTINE HCL 10 MG TABLET (FP) PO SCH (10:00)
--- NOTE | 2019-08-15 11:32 | PN ---
Progress Note, Physician Chief Complaint: Patient seen and examined at the bedside, confused and disoriented, does not appear to be in any pain. History of Present Illness: This 89 yr old w/f with hx of hypothyroidism, type 2 diabetes, and vascular dementia admitted via ER with acute low back pain, and compression fracture of L1. - Current Medication List Current Medications: Active Medications Acetaminophen (Tylenol -) 500 mg PO Q12H [facility] Last Admin: 08/15/19 06:39 Dose: 500 mg Atorvastatin Calcium (Lipitor -) 10 mg PO HS [facility] Last Admin: 08/14/19 22:43 Dose: 10 mg Brimonidine Tartrate (Alphagan 0.15% -) 1 drop OU BID [facility] Latanoprost (Xalatan 0.005% Eye Drops -) 1 drop OU [facility] Last Admin: 08/14/19 22:44 Dose: 1 drop Levothyroxine Sodium (Synthroid -) 88 mcg PO DAILY@0700 [facility] Last Admin: 08/15/19 06:39 Dose: 88 mcg Lidocaine (Lidoderm Patch -) 1 patch TP DAILY@1900 [facility] Memantine (Namenda -) 10 mg PO DAILY [facility] Last Admin: 08/15/19 09:46 Dose: 10 mg Metformin HCl (Glucophage -) 500 mg PO BID@0700,1630 [facility] Last Admin: 08/15/19 06:40 Dose: 500 mg Miscellaneous (Lidoderm Patch Removal) 1 each MC DAILY@0700 [facility] Last Admin: 08/15/19 06:40 Dose: Not Given - Objective Vital Signs: Vital Signs Temperature 97.5 F L 08/15/19 05:09 Pulse Rate 90 08/15/19 05:09 Respiratory Rate 18 08/15/19 05:09 Blood Pressure 150/86 08/15/19 05:09 O2 Sat by Pulse Oximetry (%) 92 L 08/14/19 21:00 Constitutional: Yes: Well Nourished, No Distress Eyes: Yes: Conjunctiva Clear, EOM Intact HENT: Yes: Atraumatic, Normocephalic Neck: Yes: Supple, Trachea Midline Cardiovascular: Yes: Regular Rate and Rhythm Respiratory: Yes: Regular, CTA Bilaterally Gastrointestinal: Yes: Normal Bowel Sounds, Soft ...Rectal Exam: Yes: Deferred Genitourinary: Yes: Incontinence Breast(s): Yes: WNL Musculoskeletal: Yes: WNL Extremities: Yes: WNL Edema: No Peripheral Pulses WNL: Yes Peripheral Pulses: Left Radial: 2+, Right Radial: 2+, Left Doralis Pedis: 2+, Right Dorsalis Pedis: 2+, Left Femoral: 2+, Right Femoral: 2+ Integumentary: Yes: Rash (face) Neurological: Yes: Alert ...Motor Strength: WNL Psychiatric: Yes: Alert Labs: CBC, BMP 08/14/19 11:40 08/14/19 11:40 Problem List - Problems (1) Low back pain Code(s): M54.5 - LOW BACK PAIN (2) Compression fracture of L1 lumbar vertebra Code(s): S32.010A - WEDGE COMPRESSION FRACTURE OF FIRST LUMBAR VERTEBRA, INIT Assessment/Plan Assessment/plan: acute low back pain, compression fracture of L1; consult to Ortho pending, physical therapy, Tylenol and Lidocaine patch for pain.
[2019-08-15 14:54] VITALS: TEMP 98.1
--- NOTE | 2019-08-15 15:41 | CON.ORTH ---
Consult Reason for Consultation:: LBP - Past Medical History ALGEBRA TUTOR: Yes: Dementia Cardio/Vascular: No: AFIB, Aneurysm, Aortic Insufficiency, Aortic Stenosis, CAD , CHF, Deep Vein Thrombosis, HTN, Hyperlipdemia, [place], Mitral Insufficiency, Mitral Stenosis, Murmur, Pulmonary Hypertension, Other Pulmonary: No: Asthma, Bronchitis, Cancer, COPD, O2 Dependent, Pneumonia, Previously Intubated, Pulmonary Embolus, Pulmonary Fibrosis, Sleep Apnea, Other Gastrointestinal: No: Ascites, Cancer, Constipation, Crohn's Disease, Diverticulitis, Diverticulosis, Esophageal Varices, Gastritis, GERD, GI Bleed, Hemorrhoids, Hiatal Hernia, Inflamatory Bowel Disease, Irritable Bowel Disease, Pancreatitis, Peptic Ulcer Disease, Ulcerative Colitis, Other Hepatobiliary: No: Cirrhosis, Cholelithiasis, Cholecystitis, Choledocholithiasis , Hepatitis A, Hepatitis B, Hepatitis C, Other Renal/: No: Renal Failure, Renal Inusuff, BPH, Cancer, Hematuria, Hemodialysis , Neurogenic Bladder, Renal Calculi, UTI, Other Infectious Disease: No: AIDS, C-Diff, Herpes Zoster, HIV, MRSA, STD's, Tuberculosis, VREF, Other Musculoskeletal: Yes: Chronic low back pain, Osteoarthritis Rheumatology: No: Fibromyalgia, Gout, Lupus, Rheumatoid Arthritis, Sarcoidosis, Vasculitis, Other Endocrine: Yes: Diabetes Mellitus, Hyperthyroidism Dermatology: No: Basal Cell, Cellulitis, Eczema, Melanoma, Psoriasis, Squamous Cell, Other - Alcohol/Substance Use Hx Alcohol Use: No - Smoking History Smoking history: Unknown if ever smoked Have you smoked in the past 12 months: No Home Medications - Allergies Allergies/Adverse Reactions: Allergies Allergy/AdvReac Type Severity Reaction Status Date / Time No Known Allergies Allergy Verified 08/14/19 10:29 - Home Medications Home Medications: Ambulatory Orders Acetaminophen [Mapap] 500 mg PO BID 07/23/17 Atorvastatin Ca [Lipitor] 10 mg PO HS 07/23/17 Brimonidine Tartrate/Timolol [Combigan 0.2%-0.5% Eye Drops] 1 drop OU BID Calcium Carbonate [Tums] 1,000 mg PO DAILY 07/23/17 Cholecalciferol (Vitamin D3) [Vitamin D3] 50,000 cap PO MONTHLY 07/23/17 Levothyroxine [Synthroid -] 88 mcg PO DAILY 07/23/17 Memantine HCl [Namenda Xr] 28 mg PO DAILY 07/23/17 metFORMIN HCL [Metformin HCl] 500 mg PO BID 07/23/17 Latanoprost 0.005% Eye Drops [Xalatan 0.005% Eye Drops -] 1 drop OU HS 08/14/19 Lidocaine [Aspercreme Lidocaine] 1 each TP BID 08/14/19 Acetaminophen [Tylenol .Extra-Strength -] 500 mg PO Q12H tablet 08/15/19 Atorvastatin Ca [Lipitor] 10 mg PO HS tablet 08/15/19 Brimonidine Tartrate [Alphagan 0.15% -] 1 drop OU BID drops 08/15/19 Latanoprost 0.005% Eye Drops [Xalatan 0.005% Eye Drops -] 1 drop OU HS drops Levothyroxine [Synthroid -] 88 mcg PO DAILY@0700 tablet 08/15/19 Lidocaine 5% Patch [Lidoderm -] 1 patch TP DAILY@1900 patch 08/15/19 Lidocaine Patch Removal [Lidoderm Patch Removal] 1 each MC DAILY@0700 each Memantine HCl [Namenda -] 10 mg PO DAILY tablet 08/15/19 metFORMIN HCL [Glucophage -] 500 mg PO BID@0700,1630 tablet 08/15/19 Physical Exam for Ortho Vital Signs: Vital Signs Temperature 98.1 F 08/15/19 14:53 Pulse Rate 93 H 08/15/19 14:53 Respiratory Rate 18 08/15/19 14:53 Blood Pressure 128/66 08/15/19 14:53 O2 Sat by Pulse Oximetry (%) 92 L 08/14/19 21:00 Labs: CBC, BMP 08/14/19 11:40 08/14/19 11:40 Other Findings/Remarks: + ttp, decr rom, nvi Imaging - Results Cat Scan: Report Reviewed, Image Reviewed Assessment/Plan 89 yo F with a hx of hypothyroidism, vascular dementia, and DM presents to the emergency department [facility] with back pain per the nursing staff. Per the nursing staff, she ambulates on her own volition without assistance has been complaining for the past 7 days of lower back pain of unknown severity and etiology. No falls were witnessed by the staff. Per the patient, she has no pain and feels well. Denies the following: fever, chills, headache, visual disturbance, chest pain, SOB, nausea, vomiting, abdominal pain , dysuria, hematuria, and leg pain and swelling. a/p L1 compression fx PT, wbat pain control ok to d/c from ortho pov d/w Dr. Kulkarni
[2019-08-15 17:32] VITALS: BP 138/69; PULSE 76
[2019-08-15] MEDS ORDERED: LIDOCAINE 5% TOPICAL PATCH TP SCH (19:00)
[2019-08-15] MEDS ORDERED: BRIMONIDINE TARTRATE 0.15% OPHTHALMIC 5 ML BOTTLE OU SCH (22:00)
--- NOTE | 2019-08-16 13:39 | DS ---
Physical Examination Vital Signs: Vital Signs Temperature 98.1 F 08/15/19 14:53 Pulse Rate 76 08/15/19 17:32 Respiratory Rate 18 08/15/19 17:32 Blood Pressure 138/69 08/15/19 17:32 O2 Sat by Pulse Oximetry (%) 92 L 08/14/19 21:00 Constitutional: Yes: Well Nourished, No Distress, Calm Eyes: Yes: Conjunctiva Clear, EOM Intact HENT: Yes: Atraumatic, Normocephalic Neck: Yes: Supple, Trachea Midline Cardiovascular: Yes: Regular Rate and Rhythm Respiratory: Yes: Regular, CTA Bilaterally Gastrointestinal: Yes: Normal Bowel Sounds, Soft ...Rectal Exam: Yes: Deferred Renal/: Yes: WNL Breast(s): Yes: WNL Musculoskeletal: Yes: Muscle Weakness Extremities: Yes: Other (generalized muscle weakness) Edema: No Peripheral Pulses WNL: Yes Peripheral Pulses: Left Radial: 2+, Right Radial: 2+, Left Doralis Pedis: 2+, Right Dorsalis Pedis: 2+, Left Femoral: 2+, Right Femoral: 2+ Integumentary: Yes: WNL Neurological: Yes: Alert, Confusion, Unsteady Gait, Weakness ...Motor Strength: LUE (generalized muscle weakness) Psychiatric: Yes: Alert Labs: CBC, BMP 08/14/19 11:40 08/14/19 11:40 Discharge Summary Problems reviewed: Yes Reason For Visit: BACK PAIN/COMPRESSION FRACTURE Condition: Stable - Instructions Diet, Activity, Other Instructions: Continue home meds. Activity as tolerated. Physical therapy. Transfer to [facility] Follow up with Orthopedist. Follow up with Dr. Ratliff. Total time spent over 30 minutes. Discharge summary completed on 08/15/19. Referrals: Faviola Ruelas [Primary Care Provider] - Disposition: LONG-TERM FACILITY - Home Medications Comprehensive Discharge Medication List: Ambulatory Orders Acetaminophen [Mapap] 500 mg PO BID 07/23/17 Atorvastatin Ca [Lipitor] 10 mg PO HS 07/23/17 Brimonidine Tartrate/Timolol [Combigan 0.2%-0.5% Eye Drops] 1 drop OU BID Calcium Carbonate [Tums] 1,000 mg PO DAILY 07/23/17 Cholecalciferol (Vitamin D3) [Vitamin D3] 50,000 cap PO MONTHLY 07/23/17 Levothyroxine [Synthroid -] 88 mcg PO DAILY 07/23/17 Memantine HCl [Namenda Xr] 28 mg PO DAILY 07/23/17 metFORMIN HCL [Metformin HCl] 500 mg PO BID 07/23/17 Latanoprost 0.005% Eye Drops [Xalatan 0.005% Eye Drops -] 1 drop OU HS 08/14/19 Lidocaine [Aspercreme Lidocaine] 1 each TP BID 08/14/19 Acetaminophen [Tylenol .Extra-Strength -] 500 mg PO Q12H tablet 08/15/19 Atorvastatin Ca [Lipitor] 10 mg PO HS tablet 08/15/19 Brimonidine Tartrate [Alphagan 0.15% -] 1 drop OU BID drops 08/15/19 Latanoprost 0.005% Eye Drops [Xalatan 0.005% Eye Drops -] 1 drop OU HS drops Levothyroxine [Synthroid -] 88 mcg PO DAILY@0700 tablet 08/15/19 Lidocaine 5% Patch [Lidoderm -] 1 patch TP DAILY@1900 patch 08/15/19 Lidocaine Patch Removal [Lidoderm Patch Removal] 1 each MC DAILY@0700 each Memantine HCl [Namenda -] 10 mg PO DAILY tablet 08/15/19 metFORMIN HCL [Glucophage -] 500 mg PO BID@0700,1630 tablet 08/15/19
== END 2019-08-15 17:28 | DRG 552 ==
LOC: JER 10:11 → JERBED 15:58 → J6S 18:38
PROVIDERS: ADMIT Family Medicine; ATTEND Family Medicine
DX: S32.010A Wedge compression fracture of first lumbar vertebra, initial encounter for closed fracture (principal); M51.27 Other intervertebral disc displacement, lumbosacral region; R16.0 Hepatomegaly, not elsewhere classified; E03.9 Hypothyroidism, unspecified; F01.50 Vascular dementia, unspecified severity, without behavioral disturbance, psychotic disturbance, mood disturbance, and anxiety; E11.9 Type 2 diabetes mellitus without complications; Z79.84 Long term (current) use of oral hypoglycemic drugs
CPT/HCPCS: 36415; 70450-TC; 71045-TC-FY; 72125-TC; 72131-TC; 72192-TC; 74174-TC; 80053; 82550; 82962; 84484; 85025; 99285-25; J0131